=== PATIENT | male | born 1985 | race Two or more races ===

== ENCOUNTER 2018-02-25 04:16 | Emergency (ER) | payer OTHER ==
[~2018-02-25] VITALS: Ht 182.9 cm; Wt 81.8 kg
[2018-02-25 04:22] VITALS: BP 125/52
--- NOTE | 2018-02-25 04:51 | NUR ---
pt awaiting er md. he reports the left knee pain started one hr ago while walking. he is [id number] and walked here. He states "i just need some ibuprofen or something". Reports he is from out of town.
[2018-02-25] MEDS ORDERED: acetaminophen 325mg tablet PO ONE (05:15)
--- NOTE | 2018-02-25 05:35 | NUR ---
PT GIVEN JACKET, BAG LUNCH, SOCKS, AND RESOURCE SHEET FOR [facility] [place]. PT IS GRATEFUL FOR THE ITEMS. OFFERED TAXI RIDE BUT REPORTS NO TKNOWING WHERE HE WOULD WANT TO BE DROPPED OFF.
== END 2018-02-25 05:38 | disposition home or self-care (01) ==
LOC: ER 04:19
DX: M25.562 Pain in left knee (principal); Z59.0 Homelessness; W22.8XXA Striking against or struck by other objects, initial encounter; Y93.01 Activity, walking, marching and hiking; Y92.89 Other specified places as the place of occurrence of the external cause; Y99.8 Other external cause status
CPT/HCPCS: 99282